=== PATIENT | female | born 1945 ===

== ENCOUNTER 2017-09-08 10:19 | Emergency (ER) | payer SELFPAY ==
--- NOTE | 2017-09-08 11:02 | ED PDOC ---
Arrival/HPI - General Chief Complaint: High Blood Pressure Time Seen by Provider: 09/08/17 10:42 Historian: Patient - History of Present Illness Narrative History of Present Illness (Text): 09/08/17 10:45 Cristobal Smith is a 72 year old Chinese/Greek speaking female visiting from [facility] for 1 month, whose past medical history includes blood pressure on 20mg Lisinopril, 12.5mg HCTG, diabetes on Metformin, cholecystectomy and osteoporosis, who presents to the Emergency department complaining of asymptomatic high blood pressure readings typically in 170's, 180 's, 190's, but BP reading of 220 today in Emergency department. Patient denies any fevers, palpitations, dyspnea on exertion, chills, chest pain, shortness of breath, abdominal pain, nausea, vomiting, diarrhea, back pain, neck pain, urinary symptoms, headache, dizziness, or any other complaint. Time/Duration: Prior to Arrival Symptom Onset: Sudden Symptom Course: Unchanged Activities at Onset: Light (after taking BP readings and noticing increase) Past Medical History - Provider Review Nursing Documentation Reviewed: Yes - Travel History Have you recently traveled outside [place] w/in the past 3 mons?: Yes If Yes, travel location?: [facility] - Cardiac Hx Cardiac Disorders: Yes - Pulmonary Hx Respiratory Disorders: No - Neurological Hx Neurological Disorder: No - HEENT Hx HEENT Disorder: No - Renal Hx Renal Disorder: No - Endocrine/Metabolic Hx Endocrine Disorders: Yes Hx Diabetes Mellitus Type 2: Yes - Hematological/Oncological Hx Blood Disorders: No - Integumentary Hx Dermatological Disorder: No - Musculoskeletal/Rheumatological Hx Musculoskeletal Disorders: Yes Hx Osteoporosis: Yes - Gastrointestinal Hx Gastrointestinal Disorders: Yes Hx Gall Bladder Disease: Yes - Genitourinary/Gynecological Hx Genitourinary Disorders: No - Psychiatric Hx Psychophysiologic Disorder: No Hx Substance Use: No - Surgical History Hx Cholecystectomy: Yes Family/Social History - Physician Review Nursing Documentation Reviewed: Yes Family/Social History: Unknown Family HX Smoking Status: Never Smoked Hx Alcohol Use: No Hx Substance Use: No Allergies/Home Meds Allergies/Adverse Reactions: Allergies No Known Allergies Allergy (Verified 09/08/17 10:25) Home Medications: Home Meds Medication Instructions Recorded Confirmed Lisinopril [Zestril] 20 mg PO DAILY 09/08/17 09/08/17 MetFORMIN [glucoPHAGE] 1,000 mg PO DAILY 09/08/17 09/08/17 Rosuvastatin Calcium [Crestor] 20 mg PO DAILY 09/08/17 09/08/17 Review of Systems - Physician Review All systems were reviewed & negative as marked: Yes - Review of Systems Constitutional: Normal. absent: Fevers Eyes: Normal ENT: Normal Respiratory: Normal. absent: SOB, Cough Cardiovascular: Normal. absent: Chest Pain, Palpitations, HAIDER Gastrointestinal: Normal. absent: Abdominal Pain, Diarrhea, Nausea, Vomiting Genitourinary Female: Normal. absent: Urine Output Changes Musculoskeletal: Normal. absent: Back Pain, Neck Pain Skin: Normal Neurological: Normal. absent: Headache, Dizziness Endocrine: Normal Hemo/Lymphatic: Normal Psychiatric: Normal Physical Exam Vital Signs Reviewed: Yes Vital Signs Temp Pulse Resp BP Pulse Ox 09/08/17 11:39 82 18 170/89 H 99 09/08/17 11:09 89 194/97 H 09/08/17 11:05 89 18 194/97 H 99 09/08/17 10:26 97.9 F 73 17 220/100 H 98 Temperature: Afebrile Blood Pressure: Hypertensive Pulse: Regular Respiratory Rate: Normal Appearance: Positive for: Well-Appearing, Non-Toxic, Comfortable Pain Distress: None Mental Status: Positive for: Alert and Oriented X 3 Finger Stick Blood Glucose: 143 - Systems Exam Head: Present: Atraumatic, Normocephalic Pupils: Present: PERRL Extroacular Muscles: Present: EOMI Conjunctiva: Present: Normal Mouth: Present: Moist Mucous Membranes Neck: Present: Normal Range of Motion Respiratory/Chest: Present: Clear to Auscultation, Good Air Exchange. No: Respiratory Distress, Accessory Muscle Use Cardiovascular: Present: Regular Rate and Rhythm, Normal S1, S2. No: Murmurs Abdomen: No: Tenderness, Distention, Peritoneal Signs Back: Present: Normal Inspection Upper Extremity: Present: Normal Inspection. No: Cyanosis, Edema Lower Extremity: Present: Normal Inspection. No: Edema Neurological: Present: GCS=15, CN II-XII Intact, Speech Normal Skin: Present: Warm, Dry, Normal Color. No: Rashes Psychiatric: Present: Alert, Oriented x 3, Normal Insight, Normal Concentration Medical Decision Making ED Course and Treatment: 09/08/17 10:45 Impression: Cristobal Smith is a 72 year old female who presents to the Emergency department for high blood pressure. Plan: -- EKG -- Apresoline 25 mg PO ONCE ONE -- Glucose, POC routine -- Reassess and disposition Progress Notes: 09/08/17 11:25 EKG: Ordered, reviewed, and independently interpreted the EKG. Rate : 71 BPM Rhythm : NSR. Interpretation : T-wave inversions V3 through V6. QTc of 449 milliseconds. Patient denies any chest pain, palpitations, shortness of breath, or any other complaints. 09/08/17 12:06 s/p trial of hydrlazine po pt blood pressure decemetned to he 160's at bedisde, pt remains asymptomatic, and feeling well. on crdac monitor no ischemic st-t sgements observed . kevinbe commenced on hydrlazine 25 mg po bid, and lisinopril -hctz to be maxed at 20-12.5 to 20-25 mg q daily, prmary cclincui followup for reassessment. - Lab Interpretations Lab Results: Lab Results 09/08/17 10:56: POC Glucose (mg/dL) 143 H - EKG Interpretation Interpreted by ED Physician: Yes Type: 12 lead EKG - Medication Orders Current Medication Orders: Discontinued Medications Hydralazine HCl (Apresoline) 25 mg PO ONCE ONE Stop: 09/08/17 11:04 Last Admin: 09/08/17 11:09 Dose: 25 mg JASPREET Pulse and Blood Pressure Document 09/08/17 11:09 EWO (Rec: 09/08/17 11:09 O [id number]) Pulse Pulse Rate (60-90 beats/min) 89 Blood Pressure Blood Pressure (100/60-150/90 mm Hg) 194/97 - PA / AED TRAINER / Resident Statement / has reviewed & agrees with the documentation as recorded. / has examined the patient and agrees with the treatment plan. - Scribe Statement The provider has reviewed the documentation as recorded by the Rinku Hough All medical record entries made by the Rinku were at my direction and personally dictated by me. I have reviewed the chart and agree that the record accurately reflects my personal performance of the history, physical exam, medical decision making, and the department course for this patient. I have also personally directed, reviewed, and agree with the discharge instructions and disposition. Disposition/Present on Arrival - Present on Arrival Any Indicators Present on Arrival: Yes History of DVT/PE: No History of Uncontrolled Diabetes: Yes Urinary Catheter: No History of Decub. Ulcer: No History Surgical Site Infection Following: None - Disposition Have Diagnosis and Disposition been Completed?: Yes Diagnosis: Hypertensive urgency Disposition: HOME/ ROUTINE Disposition Time: 12:10 Patient Plan: Discharge Condition: GOOD Discharge Instructions (ExitCare): High Blood Pressure (DC) Print Language: DOMINICAN Additional Instructions: Please follow up within the primary care clinic to have your blood pressure rechecked and to assess the efficacy of added medication. Prescriptions: hydrALAZINE [Apresoline] 25 mg PO BID #60 tab Lisinopril/Hydrochlorothiazide [Lisinopril-Hctz 20-25 mg Tab] 1 each PO DAILY # 30 tablet MetFORMIN [glucoPHAGE] 1,000 mg PO DAILY #30 tab Referrals: [facility] at [facility] [Outside] - Follow up with primary Forms: [employer] (Greek)
[2017-09-08 11:13] VITALS: RESP 18
[2017-09-08 12:11] VITALS: BP 171/88
[2017-09-08 12:30] VITALS: PULSE 72; TEMP 98.2; O2SAT 99
--- NOTE | 2017-09-09 05:25 | CARD ---
APPROVED REPORT Date of service: 09/08/2017 EKG Measurement Heart [id number] <Conclusion> Normal sinus rhythm Nonspecific T wave abnormality Abnormal ECG
== END 2017-09-08 12:29 | disposition home or self-care (01) ==
LOC: ED 10:19
DX: I16.0 Hypertensive urgency (principal); E11.9 Type 2 diabetes mellitus without complications; Z79.84 Long term (current) use of oral hypoglycemic drugs